=== PATIENT | male | born 1980 | race Caucasian/White ===

== ENCOUNTER 2020-10-23 17:53 | Inpatient (IN) | payer OTHER ==
[2020-10-23 18:37] VITALS: BMI 25.1
[2020-10-23] MEDS ORDERED: MAGNESIUM HYDROX 2400MG/30ML ORAL SUSPENSION 30 ML CUP PO PRN (18:38)
[2020-10-23] MEDS ORDERED: ONDANSETRON *ODT* 4 MG TABLET SL PRN (18:38)
[2020-10-23] MEDS ORDERED: MAGNESIUM CITRATE 300 ML BOTTLE PO PRN (18:38)
[2020-10-23] MEDS ORDERED: METHOCARBAMOL 500 MG TABLET PO PRN (18:38)
[2020-10-23] MEDS ORDERED: MENTHOL/PHENOL 1 EACH UD MM PRN (18:38)
[2020-10-23] MEDS ORDERED: IBUPROFEN 400 MG TABLET (FP) PO PRN (18:38)
[2020-10-23] MEDS ORDERED: ACETAMINOPHEN 325 MG TABLET (FP) PO PRN ×2 (18:38)
[2020-10-23] MEDS ORDERED: BISMUTH SUBSALICYLATE 524 MG/30 ML UD PO PRN (18:38)
[2020-10-23] MEDS ORDERED: chlordiazePOXIDE HCL 25 MG CAPSULE PO ONE (18:40)
[2020-10-23] MEDS ORDERED: chlordiazePOXIDE HCL 25 MG CAPSULE PO PRN (18:40)
[2020-10-23] MEDS ORDERED: BUPRENORPHINE/NALOXONE 8 MG/2 MG FILM PACKET SL SCH (22:00)
[2020-10-23] MEDS: MELATONIN 5 MG TABLETS PO SCH (22:20)
[2020-10-23] MEDS: THIAMINE HCL 100 MG TABLET (FP) PO SCH (22:20)
[2020-10-23] MEDS: chlordiazePOXIDE HCL 25 MG CAPSULE PO SCH (22:20)
[2020-10-24] MEDS: MAG HYDROX/AL HYDROX/SIMETH 30 ML UNIT-DOSE CUP PO PRN ×2 (00:02→23:35)
[2020-10-24] MEDS: hydrOXYzine PAMOATE 25 MG CAPSULE (FP) PO PRN ×2 (00:02→05:36)
[2020-10-24] MEDS: chlordiazePOXIDE HCL 25 MG CAPSULE PO SCH ×4 (05:34→22:23)
[2020-10-24] MEDS: BUPRENORPHINE/NALOXONE 8 MG/2 MG FILM PACKET SL SCH ×3 (07:33→22:22)
[2020-10-24 10:17] LABS: POTASSIUM 3.9 mmol/L (3.5-5.1)
[2020-10-24] MEDS: PRENATAL VITAMINS W/ FOLIC ACID TABLET (FP) PO SCH (10:18)
[2020-10-24 10:19] LABS: ALBUMIN 4.2 g/dl (3.4-5.0); BLOOD UREA NITROGEN 10.4 mg/dL (7-18); CALCIUM 8.6 mg/dL (8.5-10.1)
[2020-10-24] MEDS: NICOTINE POLACRILEX 2 MG GUM BUC PRN ×3 (10:19→23:35)
[2020-10-24 10:23] LABS: CREATININE 0.9 mg/dL (0.55-1.3)
[2020-10-24 10:24] LABS: BILIRUBIN,TOTAL 0.6 mg/dL (0.2-1); TOT PROT 7.8 g/dl (6.4-8.2)
[2020-10-24 10:26] LABS: HEMATOCRIT 42.1 % (35.4-49); HEMOGLOBIN 13.8 GM/dL (11.7-16.9); MCH 31.5 pg (25.7-33.7); MCHC 32.8 g/dl (32.0-35.9); MEAN CELL VOLUME 96.1 fl (80-96); MEAN PLT VOLUME 7.7 fl (7.5-11.1); PLATELET COUNT 279 K/MM3 (134-434); RBC 4.38 M/mm3 (4.00-5.60); RDW 14.3 % (11.9-15.9); WHITE BLOOD COUNT 5.5 K/mm3 (4.0-10.0)
[2020-10-24] MEDS: THIAMINE HCL 100 MG TABLET (FP) PO SCH (22:22)
[2020-10-24] MEDS: MELATONIN 5 MG TABLETS PO SCH (22:23)
[2020-10-25] MEDS: BUPRENORPHINE/NALOXONE 8 MG/2 MG FILM PACKET SL SCH ×2 (05:38→13:19)
[2020-10-25] MEDS: chlordiazePOXIDE HCL 25 MG CAPSULE PO SCH ×2 (05:38→10:31)
[2020-10-25] MEDS: NICOTINE POLACRILEX 2 MG GUM BUC PRN ×4 (05:46→16:39)
[2020-10-25] MEDS: PRENATAL VITAMINS W/ FOLIC ACID TABLET (FP) PO SCH (10:31)
[2020-10-25] MEDS ORDERED: LORazepam 0.5 MG TABLET PO PRN (11:24)
[2020-10-25 11:34] LABS: INR 0.88 (0.83-1.09); PROTHROMBIN TIME (PATIENT) 10.7 SEC (9.7-13.0)
[2020-10-25 11:43] LABS: SGPT/ALT 119 U/L (13-61)
[2020-10-25 11:47] LABS: SGOT/AST 140 U/L (15-37)
[2020-10-25] MEDS ORDERED: LORazepam 1 MG TABLET PO SCH (17:00)
[2020-10-25 18:26] VITALS: BP 120/77; PULSE 78; TEMP 98.1
[2020-10-26] MEDS ORDERED: chlordiazePOXIDE HCL 10 MG CAPSULE PO PRN
[2020-10-26] MEDS ORDERED: chlordiazePOXIDE HCL 10 MG CAPSULE PO SCH (05:00)
[2020-10-26] MEDS ORDERED: LORazepam 0.5 MG TABLET PO SCH (05:00)
[2020-10-27] MEDS ORDERED: chlordiazePOXIDE HCL 10 MG CAPSULE PO SCH (05:00)
[2020-10-27] MEDS ORDERED: LORazepam 0.5 MG TABLET PO ONE (05:00)
[2020-10-28] MEDS ORDERED: chlordiazePOXIDE HCL 10 MG CAPSULE PO ONE (05:00)
== END 2020-10-25 19:00 | disposition left against medical advice (07) | DRG 770 ==
LOC: YASAS 17:53 → Y3N 18:44
PROVIDERS: ADMIT Allergy & Immunology; ATTEND Allergy & Immunology
PROC: HZ2ZZZZ Detoxification Services for Substance Abuse Treatment (ICD-10-PCS; principal; 2020-10-23)
DX: F10.230 Alcohol dependence with withdrawal, uncomplicated (principal); F11.20 Opioid dependence, uncomplicated; F17.210 Nicotine dependence, cigarettes, uncomplicated; F32.9 Major depressive disorder, single episode, unspecified; I10 Essential (primary) hypertension; J45.909 Unspecified asthma, uncomplicated; K21.9 Gastro-esophageal reflux disease without esophagitis; H91.90 Unspecified hearing loss, unspecified ear; R74.01 Elevation of levels of liver transaminase levels; R74.8 Abnormal levels of other serum enzymes; Z86.69 Personal history of other diseases of the nervous system and sense organs
CPT/HCPCS: 36415; 80053; 84450; 84460; 85027; 85610; 86780; C9803; U0003